=== PATIENT | female | born 1945 | race Two or more races ===

== ENCOUNTER 2021-02-01 14:07 | Emergency (ER) | payer SELFPAY ==
[~2021-02-01] VITALS: Ht 167.6 cm; Wt 79.4 kg
[2021-02-01] MEDS ORDERED: MORPHINE SULFATE 4 MG/ML SYR/VIAL IV ONE ×3 (15:00→21:30)
[2021-02-01] MEDS ORDERED: ONDANSETRON HCL 4 MG/2 ML VIAL IV ONE ×3 (15:00→21:30)
[2021-02-01 16:09] LABS: Basophils # (auto) 0 10 ^3/uL (0-0.2); Basophils % (auto) 0.4 % (0.0-2.0); Eosinophils # (auto) 0 10 ^3/uL (0-0.8); Eosinophils % (auto) 0.1 % (0.0-7.0); Lymphocytes # (auto) 1.1 10 ^3/uL (0.4-5.4); Lymphocytes % (auto) 10.5 % (10.0-50.0); Mean Corpuscular Hemoglobin 32.6 pg (28.0-32.0); Mean Corpuscular Hgb Conc. 35.3 g/dL (32.0-36.0); Mean Corpuscular Volume 92.5 fL (80.0-100.0); Monocytes # (auto) 0.9 10 ^3/uL (0-1.3); Monocytes % (auto) 8.8 % (0.0-12.0); Neutrophils # (auto) 8.1 10 ^3/uL (1.6-8.6); Neutrophils % (auto) 80.2 % (37.0-80.0); Platelet Count (auto) 254 10^3/uL (140-450); Red Cell Distribution Width 14.6 % (11.8-14.3); White Blood Cell 10.1 10^3/uL (4.4-10.8)
[2021-02-01 16:29] LABS: Albumin 2.6 g/dL (3.4-5.0); BUN/Creatinine Ratio 13.5; Calcium 8.3 mg/dL (8.5-10.1)
[2021-02-01 16:31] LABS: Bilirubin, Total 1.4 mg/dL (0.2-1.0); Total Protein 6.8 g/dL (6.4-8.2)
[2021-02-01] MEDS ORDERED: MORPHINE SULFATE 4 MG/ML SYR/VIAL ONE ×2 (19:48→21:28)
[2021-02-01] MEDS ORDERED: ONDANSETRON HCL 4 MG/2 ML VIAL ONE ×2 (19:48→21:28)
[2021-02-01 22:23] VITALS: BP 98/46
== END 2021-02-01 22:38 | disposition home or self-care (01) ==
LOC: ER 14:07
DX: E87.6 Hypokalemia (principal); E87.1 Hypo-osmolality and hyponatremia; N20.0 Calculus of kidney
CPT/HCPCS: 36415; 74176; 80053; 82150; 83690; 85025; 93005; 96374; 96375; 96376; 99285; J2270; J2405